=== PATIENT | male | born 1945 | race Two or more races ===

== ENCOUNTER 2021-04-26 12:22 | Inpatient (IN) | payer MEDICARE, OTHER ==
[~2021-04-26] VITALS: Ht 182.9 cm; Wt 81.1 kg
[2021-04-26 14:24] LABS: Hematocrit 39.7 % (41.0-53.0); Hemoglobin 13.4 g/dL (13.5-17.5); Mean Corpuscular Hemoglobin 30.9 pg (28.0-32.0); Mean Corpuscular Hgb Conc. 33.8 g/dL (32.0-36.0); Mean Corpuscular Volume 91.4 fL (80.0-100.0); Red Blood Cells 4.34 10^6/uL (4.5-5.90); Red Cell Distribution Width 15.2 % (11.8-14.3); White Blood Cell 9.4 10^3/uL (4.4-10.8)
[2021-04-26 14:33] LABS: Band Neutrophils % (manual) 0; Basophils % (manual) 0 (0.0-2.0); Blast Cells 0; Eosinophils % (manual) 0 (0-7); Metamyelocytes % 0; Myelocytes % 0; Promyelocytes % 0; Reactive Lymphocytes 0
[2021-04-26 14:40] LABS: INR 1.08 (0.9-1.15); Partial Thromboplastin Time 27.9 sec (23.0-31.2)
[2021-04-26 14:43] LABS: Albumin 3.7 g/dL (3.4-5.0); Calcium 8.6 mg/dL (8.5-10.1)
[2021-04-26 14:46] LABS: BUN/Creatinine Ratio 10.9; Bilirubin, Total 0.5 mg/dL (0.2-1.0); Total Protein 6.9 g/dL (6.4-8.2)
[2021-04-26 15:07] LABS: Lymphocytes % (manual) 81 (10.0-50.0); Monocytes % (manual) 4 (0-12)
[2021-04-26] MEDS ORDERED: ACETAMINOPHEN 325 MG TAB PO ONE (19:30)
[2021-04-26] MEDS ORDERED: HYDROcodone-ACET 5/325MG TAB PO PRN (21:30)
[2021-04-26] MEDS ORDERED: ONDANSETRON HCL 4 MG/2 ML VIAL IV PRN (21:30)
[2021-04-26] MEDS ORDERED: ACETAMINOPHEN 325 MG TAB PO PRN (21:30)
[2021-04-26] MEDS ORDERED: hydrALAZINE HCL 20 MG/ML VL IV PRN (21:30)
[2021-04-26] MEDS ORDERED: MORPHINE SULFATE INJECTION 2 MG/ML SYRG IV PRN (21:30)
[2021-04-26] MEDS ORDERED: NITROGLYCERIN 0.4 MG SL TAB SL PRN (21:30)
[2021-04-26 22:25] VITALS: BP 148/94
[2021-04-27] MEDS: SOD CHL 0.45% 1,000 ML IV SCH ×2 (00:35→11:20)
[2021-04-27] MEDS ORDERED: POM (02:02)
[2021-04-27] MEDS ORDERED: AMLO-489 PO (02:02)
[2021-04-27] MEDS ORDERED: TAMS1CAP25 PO (02:02)
[2021-04-27] MEDS ORDERED: ATEN-60 PO (02:02)
[2021-04-27] MEDS ORDERED: ZOLP10TA PO (02:09)
[2021-04-27] MEDS ORDERED: TEMAZEPAM 15 MG CAP PO ONE (02:15)
[2021-04-27 05:00] VITALS: BP 145/100
[2021-04-27 06:37] LABS: Hematocrit 38.5 % (41.0-53.0); Hemoglobin 13.3 g/dL (13.5-17.5); Mean Corpuscular Hemoglobin 31.4 pg (28.0-32.0); Mean Corpuscular Hgb Conc. 34.6 g/dL (32.0-36.0); Red Blood Cells 4.23 10^6/uL (4.5-5.90); Red Cell Distribution Width 14.6 % (11.8-14.3)
[2021-04-27 06:46] LABS: Band Neutrophils % (manual) 0; Basophils % (manual) 0 (0.0-2.0); Blast Cells 0; Metamyelocytes % 0; Myelocytes % 0; Promyelocytes % 0; Reactive Lymphocytes 0
[2021-04-27 06:55] LABS: Potassium 4.1 mmol/L (3.5-5.1)
[2021-04-27 07:03] LABS: Albumin 3.6 g/dL (3.4-5.0); BUN/Creatinine Ratio 11.9; Bilirubin, Total 0.7 mg/dL (0.2-1.0); Calcium 8.8 mg/dL (8.5-10.1); Total Protein 6.3 g/dL (6.4-8.2)
[2021-04-27 07:23] LABS: Eosinophils % (manual) 3 (0-7); Lymphocytes % (manual) 90 (10.0-50.0); Monocytes % (manual) 2 (0-12)
[2021-04-27 09:00] VITALS: BP 145/96
[2021-04-27] MEDS: ENOXAPARIN SOD 40 MG/0.4 ML SYRINGE SC SCH ×2 (09:43→10:00)
[2021-04-27] MEDS ORDERED: PANTOPRAZOLE 40 MG/10 ML VIAL INJ IV SCH (10:00)
[2021-04-27 13:00] VITALS: BP 155/88
[2021-04-27] MEDS ORDERED: TAMSULOSIN HYDROCHLORIDE 0.4 MG CAP PO SCH (18:00)
[2021-04-29] MEDS ORDERED: GOLYTELY 4L KIT PO ONE (10:00)
== END 2021-04-27 15:15 | disposition home or self-care (01) | DRG 377 ==
LOC: ER 12:22 → TELE-WESTW 21:19
PROVIDERS: ADMIT Nurse Practitioner Family; ATTEND Nurse Practitioner Family
DX: K62.5 Hemorrhage of anus and rectum (principal); N18.6 End stage renal disease; I12.0 Hypertensive chronic kidney disease with stage 5 chronic kidney disease or end stage renal disease; C85.90 Non-Hodgkin lymphoma, unspecified, unspecified site; D50.0 Iron deficiency anemia secondary to blood loss (chronic); Z20.822 Contact with and (suspected) exposure to COVID-19; J44.9 Chronic obstructive pulmonary disease, unspecified; N40.0 Benign prostatic hyperplasia without lower urinary tract symptoms; Z82.0 Family history of epilepsy and other diseases of the nervous system; Z90.49 Acquired absence of other specified parts of digestive tract; Z88.6 Allergy status to analgesic agent; K64.8 Other hemorrhoids
CPT/HCPCS: 36415; 74176; 80053; 83036; 85007; 85027; 85049; 85610; 85730; 86850; 86900; 86901; 87426; C9113; G0378